=== PATIENT | male | born 2000 | race Caucasian/White ===

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

== ENCOUNTER → 2024-11-19 | Outpatient (CLI) | payer MEDICAID, SELFPAY ==
--- NOTE | 2024-11-19 08:28 | XR_ITS ---
Examination: Ankle Bilateral, 6 views Technique: AP oblique lateral each ankle total 6 views Exam date and time: November 19, 2024 0857 hours INDICATIONS: Bilateral ankle pain 10 years. FINDINGS: No fracture or dislocation involving either ankle Mild bilateral narrowing tibiotalar joints No erosive arthritis IMPRESSION: Mild bilateral narrowing tibiotalar joints
--- NOTE | 2024-11-19 08:28 | XR_ITS ---
Examination: AP knees bilateral single view TECHNIQUE: AP standing bilateral knees single view Exam date and time: November 19, 2024 0835 hours INDICATIONS: Bilateral knee pain 10 years. FINDINGS: Mild narrowing medial joint spaces No fractures or dislocations No ossified joint bodies IMPRESSION: Mild narrowing medial joint spaces
== END | disposition home or self-care (01) ==
LOC: CDIM 08:23
PROVIDERS: PCP Family Medicine; Referring Provider Nurse Practitioner Family; Visit Provider Nurse Practitioner Family
DX: M25.862 Other specified joint disorders, left knee (principal); M25.861 Other specified joint disorders, right knee; M25.872 Other specified joint disorders, left ankle and foot; M25.871 Other specified joint disorders, right ankle and foot
CPT/HCPCS: 73565; 73610